=== PATIENT | female | born 1950 | race Caucasian/White ===

== ENCOUNTER 2019-05-14 18:27 | Emergency (ER) | payer MEDICARE, OTHER ==
--- NOTE | 2019-05-14 19:01 | ED Physician Documentation ---
History of Present Illness - Stated complaint Stated Complaint: HEAD INJ/LIGHT HEADED - Chief complaint Chief Complaint: Trauma Hd/Nk - History obtained from History obtained from: Patient - History of Present Illness Timing: Today, How many hours ago (2) Pain level max: 7 Pain level now: 5 - Additonal information Additional information: 68-year-old female was walking on a brick patio today when she tripped fell landing on the right side of her forehead and face. Injuring her head and left knee in the process. Walking with a limping gait on the left knee. Worse with walking, better with rest. Unsure of LOC. Was lightheaded and confused initially. She is not on blood thinners. No focal numbness or tingling. Nausea but no vomiting. Tetanus is up-to-date Review of Systems Ten Systems: 10 systems reviewed and negative Constitutional: denies: Fever, Chills Eyes: denies: Loss of vision, Decreased vision, Photophobia Ears: denies: Ear pain Cardiac: denies: Chest pain / pressure Respiratory: denies: Cough GI: denies: Vomiting, Diarrhea Skin: denies: Rash Musculoskeletal: denies: Neck pain, Back pain Neurologic: denies: Focal weakness, Numbness, Confused PD PAST MEDICAL HISTORY - Past Medical History Past Medical History: Yes - Allergies Allergies/Adverse Reactions: Allergies Allergy/AdvReac Type Severity Reaction Status Date / Time Penicillins Allergy Itching Verified 05/14/19 18:33 - Living Situation Living Situation: reports: With family Living Arrangement: reports: At home - Social History Does the pt smoke?: No Does the pt have substance abuse?: No - Family History Family history: reports: Non contributory PD ED PE NORMAL - Vitals Vital signs reviewed: Yes - General General: Alert and oriented X 3, No acute distress, Well developed/nourished - HEENT HEENT: PERRL, Ears normal, Moist mucous membranes, Pharynx benign, Other (Small hematoma on the right forehead. No palpable skull fractures. Abrasion to the right forehead and right side of the nose. No tenderness over the bridge of the nose. No septal hematomas. No epistaxis.) - Neck Neck: Supple, no meningeal sign, No bony TTP - Cardiac Cardiac: RRR, Strong equal pulses - Respiratory Respiratory: No respiratory distress, Clear bilaterally - Abdomen Abdomen: Soft, Non tender, Non distended - Back Back: No spinal TTP - Derm Derm: Warm and dry - Extremities Extremities: Other (Tender to palpation over the patella of the left knee. Ecchymosis present. Mild abrasion on the right knee. No bony tenderness. Full range of motion without pain of the right knee. Left knee ligaments are intact. Right knee ligaments are intact.) - Neuro Neuro: Alert and oriented X 3, hospice manager 2-12 intact, No motor deficit, No sensory deficit, Normal speech - Psych Psych: Normal mood, Normal affect Results - Vitals Vitals: Vital Signs - 24 hr 05/14/19 05/14/19 18:33 20:39 Temperature 36.5 C 37 C Heart Rate 75 80 Respiratory 16 16 Rate Blood Pressure 140/54 H 139/100 H O2 Saturation 98 97 Oxygen O2 Source Room air - Rads (name of study) Head CT Radiology: Prelim report reviewed, EMP read contemporaneously, See rad report (No acute abnormality) Cervical spine CT Radiology: Prelim report reviewed, EMP read contemporaneously, See rad report (Left knee x-rayLeft knee x-ray) Left knee x-ray Radiology: Prelim report reviewed, EMP read contemporaneously, See rad report (Nondisplaced inferior transverse patella fracture.) PD MEDICAL DECISION MAKING - ED course Complexity details: reviewed results, re-evaluated patient, considered differential, d/w patient ED course: Patient placed into a knee immobilizer and given crutches. Declines pain medication here or for home. She will follow-up with an orthopedist when she returns home next week for further evaluation of her patellar fracture. No acute findings on head or cervical spine CT. Patient counseled regarding signs and symptoms for which I believe and urgent re-evaluation would be necessary. Patient with good understanding of and agreement to plan and is comfortable going home at this time This document was made in part using voice recognition software. While efforts are made to proofread this document, sound alike and grammatical errors may occur. Departure - Departure Disposition: 01 Home, Self Care Clinical Impression: Closed head injury Qualifiers: Encounter type: initial encounter Qualified Code(s): S09.90XA - Unspecified injury of head, initial encounter Patella fracture Qualifiers: Encounter type: initial encounter Fracture type: closed Fracture morphology: unspecified fracture morphology Fracture alignment: nondisplaced Laterality: left Qualified Code(s): S82.002A - Unspecified fracture of left patella, initial encounter for closed fracture Condition: Good Instructions: ED Head Injury Closed, ED Fx Knee Follow-Up: Anurag Brambila MD [Primary Care Provider] - Within 1 week Comments: Contact your doctor on Friday about an orthopedist that you should follow-up with for your left patellar fracture. Stay in the knee immobilizer until seen by orthopedics. Return if you worsen. Discharge Date/Time: 05/14/19 20:45
--- NOTE | 2019-05-14 19:58 | CT Report ---
Reason: fall, head injury Procedure Date: 05/14/2019 Accession Number: [id number] / [id number] Procedure: CT - HEAD WO CPT Code: FULL RESULT: EXAM: CT HEAD EXAM DATE: 05/14/2019 07:17 PM. CLINICAL HISTORY: Fall. Frontal head pain. Head injury. COMPARISON: None. TECHNIQUE: Multiaxial CT images were obtained from the foramen magnum to the vertex. Reformats: Sagittal and coronal. IV contrast: None. In accordance with CT protocol optimization, one or more of the following dose reduction techniques were utilized for this exam: automated exposure control, adjustment of mA and/or KV based on patient size, or use of iterative reconstructive technique. FINDINGS: Parenchyma: No evidence of an acute vascular insult or acute parenchymal hemorrhage. No midline shift. No mass-effect . Mild parenchymal volume loss and periventricular regions of low attenuation. Extraaxial Spaces: Extra-axial spaces are mildly prominent. No subdural or epidural collections identified. Ventricles: Normal in size and position. Sinuses and Orbits: Imaged paranasal sinuses, orbits, and mastoids show no significant abnormality. Bones: No evidence of fracture or calvarial defect. Other: Changes are seen from bilateral lens surgery. Right frontal soft tissue edema. IMPRESSION: 1. No acute intracranial abnormality is identified. 2. No acute fracture. 3. Right frontal soft tissue edema. 4. Mild parenchymal volume loss and chronic white matter changes. [facility]
--- NOTE | 2019-05-14 20:00 | CT Report ---
Reason: fall, head injury Procedure Date: 05/14/2019 Accession Number: [id number] / [id number] Procedure: CT - CERVICAL SPINE WO CPT Code: FULL RESULT: EXAM: CT CERVICAL SPINE WITHOUT CONTRAST DATE: 05/14/2019 07:17 PM. HISTORY: Fall. Head injury. Neck pain. COMPARISONS: None. TECHNIQUE: Thin-section axial images were acquired of the cervical spine without contrast. Post-processing: Coronal and sagittal reformats. Other: None. In accordance with CT protocol optimization, one or more of the following dose reduction techniques were utilized for this exam: automated exposure control, adjustment of mA and/or KV based on patient size, or use of iterative reconstructive technique. FINDINGS: Alignment: Reversal of normal cervical lordosis. No scoliosis or spondylolisthesis. Bones: No fracture or bone lesion. Fusion noted involving the upper thoracic spine facets. Interspace Levels/Facets: C1-C2: Anterior degenerative changes. C2-C3: Unremarkable. C3-C4: Mild disk space narrowing. C4-C5: Moderate disk space narrowing with spurring. C5-C6: Advanced disk narrowing with spurring. C6-C7: Mild disk space narrowing with spurring. C7-T1: Unremarkable. Musculature: Normal. No fatty atrophy. Other: The paravertebral and prevertebral soft tissues are unremarkable. The lung apices are clear. IMPRESSION: 1. No acute bony abnormalities. 2. Reversal of normal cervical lordosis. 3. Multilevel degenerative disk disease, worst at C5-C6. [facility]
--- NOTE | 2019-05-14 20:07 | XRAY Report ---
Reason: fall, knee injury Procedure Date: 05/14/2019 Accession Number: [id number] / [id number] Procedure: XR - Knee 4 View LT CPT Code: FULL RESULT: EXAM: LEFT KNEE RADIOGRAPHY EXAM DATE: 05/14/2019 07:34 PM. CLINICAL HISTORY: Fall. Knee injury. COMPARISON: None. TECHNIQUE: 4 views. FINDINGS: Bones: Nondisplaced lower patellar fracture. Otherwise negative for traumatic or destructive bone abnormality. Joints: Small hemarthrosis. No subluxations. Soft Tissues: Unremarkable. IMPRESSION: Nondisplaced inferior patellar fracture with small hemarthrosis. [facility]
[2019-05-14 20:41] VITALS: BP 139/100
== END 2019-05-14 20:45 | disposition home or self-care (01) ==
LOC: ED 18:27
DX: S82.035A Nondisplaced transverse fracture of left patella, initial encounter for closed fracture (principal); S00.83XA Contusion of other part of head, initial encounter; S00.81XA Abrasion of other part of head, initial encounter; S00.31XA Abrasion of nose, initial encounter; S09.90XA Unspecified injury of head, initial encounter; W01.198A Fall on same level from slipping, tripping and stumbling with subsequent striking against other object, initial encounter; Y93.01 Activity, walking, marching and hiking; M50.322 Other cervical disc degeneration at C5-C6 level; M48.02 Spinal stenosis, cervical region
CPT/HCPCS: 70450; 72125; 99282; 99284